=== PATIENT | female | born 1935 | race Caucasian/White ===

== ENCOUNTER 2021-09-22 20:25 | Emergency (ER) | payer OTHER ==
[2021-09-22 21:53] LABS: HEMOGLOBIN 13.2 gm/dl (12.3-15.3); RED BLOOD COUNT 4.38 M/UL (4.00-5.10); WHITE BLOOD COUNT 10.7 K/UL (4.5-11.0)
[2021-09-22 22:21] LABS: BUN/CREATININE RATIO 15 (0-10)
[2021-09-23] MEDS ORDERED: OMNICEF 300 MG300 MG PO (00:55)
[2021-09-23] MEDS ORDERED: ZOFRAN 4 MG TAB4 MG PO (00:55)
== END 2021-09-23 01:20 | disposition home or self-care (01) ==
LOC: ER1 20:25
PROVIDERS: Physician Assistant Medical
DX: N39.0 Urinary tract infection, site not specified (principal); I11.9 Hypertensive heart disease without heart failure
CPT/HCPCS: 80053; 81001; 83605; 83690; 85025; 96374; 99284; J0696; J7040; Q9967